=== PATIENT | female | born 1980 | race Caucasian/White ===

== ENCOUNTER → 2016-11-09 | Outpatient (CLI) | payer MEDICAID | LOC: FIMAGING 08:31 | PROVIDERS: ATTEND Psychiatry & Neurology Neurology | DX: R20.2 Paresthesia of skin (principal); M25.80 Other specified joint disorders, unspecified joint | CPT/HCPCS: 82607-90 ==

== ENCOUNTER → 2016-11-24 | Outpatient (CLI) | payer MEDICAID ==
[~2016-11-24] MED LIST: GADOBUTROL 10 ML VIAL IVP ONE
== END ==
LOC: FIMAGING 08:14
PROVIDERS: ATTEND Psychiatry & Neurology Neurology
DX: M50.921 Unspecified cervical disc disorder at C4-C5 level (principal)
CPT/HCPCS: A9585

== ENCOUNTER 2018-04-10 11:47 | Emergency (ER) | payer OTHER ==
[2018-04-10] MEDS ORDERED: TDAP ADULT 0.5 ML INJ (BOOSTRIX) IM ONE (12:22)
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
[2018-04-10] MEDS ORDERED: NS 1,000 ML IV ONE (12:41)
[2018-04-10] MEDS ORDERED: IBUPROFEN 600 MG TAB PO ONE (12:46)
[2018-04-10] MEDS ORDERED: IOPAMIDOL (ISOVUE-300) 100 ML BTL ONE (13:08)
[2018-04-10 14:13] VITALS: BP 121/78
== END 2018-04-10 14:13 | disposition home or self-care (01) ==
LOC: EDUNIT#
DX: S22.22XA Fracture of body of sternum, initial encounter for closed fracture (principal); E86.9 Volume depletion, unspecified; V43.52XA Car driver injured in collision with other type car in traffic accident, initial encounter; Y92.410 Unspecified street and highway as the place of occurrence of the external cause; Y99.8 Other external cause status
CPT/HCPCS: 82435-PO; 82565-PO; 82947-PO; 84132-PO; 84295-PO; 84520-PO; 85014-PO; Q9967